=== PATIENT | male | born 2005 | race Caucasian/White ===

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

== ENCOUNTER 2023-01-11 15:36 | Emergency (ER) | payer OTHER, SELFPAY ==
[2023-01-11 15:47] VITALS: BP 135/65; PULSE 73; RESP 18; TEMP 37.1; O2SAT 100
--- NOTE | 2023-01-11 16:26 | ED.SKABFB ---
HPI - Skin/Abscess/Foreign Bdy General Chief complaint: Skin/Abscess/Foreign Body Stated complaint: rash Time Seen by Provider: 01/11/23 16:26 Source: patient Mode of arrival: ambulatory Limitations: no limitations History of Present Illness HPI narrative: 17-year-old male presented complaint of poison danelle to both arms and neck worsening over the past week. Applying itch cream and spray without relief. Patient works in [employer]. Denies lip, tongue, or throat swelling, shortness of breath or wheezing. Denies changes to soap, detergent, lotion, or any other exposures. No one else in the house or any contacts with similar symptoms. Related Data Allergies Allergy/AdvReac Type Severity Reaction Status Date / Time No Known Allergies Allergy Verified 01/11/23 15:57 Review of Systems Review of Systems: CONSTITUTIONAL: Denies body aches, fever, chills, or sweats. EYES: Denies visual changes, redness, or discharge. ENT: Denies rhinorrhea, congestion CARDIOVASCULAR: Denies chest pain, palpitations, or edema. RESPIRATORY: Denies cough or dyspnea. GASTROINTESTINAL: Denies abdominal pain, nausea, vomiting, or diarrhea. SKIN: per HPI MUSCULOSKELETAL: Denies back pain, joint pain, or myalgia. NEUROLOGIC: Denies headache, numbness, tingling, or weakness. [facility] Past Medical History Medical History No active medical problems Social History Social History Smoking status: Never smoker Alcohol intake: current Comments At time of signature, I have reviewed and agree with nursing past medical, surgical, social and family history unless otherwise noted. Please see nursing chart for further information. There is no relevant family history pertinent to the presenting complaint Exam Narrative: GENERAL: Well-appearing HEAD: Normocephalic, atraumatic. EYES: conjunctivae clear, and EOMI. ENT: Mucous membranes moist. Oropharynx without edema, erythema or lesions. NECK: Supple. No lymphadenopathy CHEST: Clear to auscultation. HEART: Regular rate and rhythm. SKIN: Warm, dry. Scattered erythematous vesicular lesions to bilateral arms, more severe around the neck, c/w poison danelle; no active drainage, induration, fluctuance to any sites. NEURO: Alert and oriented x3. Course Course Emergency Course: Patient is aware of diagnosis, understands and agrees to treatment plan. Anticipatory guidance given. Patient agrees to follow-up as directed and is aware of reasons to seek care at the emergency department. Portions of this record may have been created with voice recognition software Level of Care: Express Care Visit Vital Signs Vital signs: Vital Signs Temperature 98.7 F 01/11/23 15:47 Pulse Rate 73 01/11/23 15:47 Respiratory Rate 18 01/11/23 15:47 Blood Pressure 135/65 01/11/23 15:47 Pulse Oximetry 100 01/11/23 15:47 Oxygen Delivery Room Air 01/11/23 15:47 Temperature 98.7 F 01/11/23 15:47 Pulse Rate 73 01/11/23 15:47 Respiratory Rate 18 01/11/23 15:47 Blood Pressure 135/65 01/11/23 15:47 Pulse Oximetry 100 01/11/23 15:47 Oxygen Delivery Room Air 01/11/23 15:47 Reviewed MDM - Skin/Abscess/Foreign Bdy MDM Narrative Medical decision making narrative: Discussed physical exam findings. Advised supportive measures and signs/symptoms to go to the ER. Pt is appropriate for outpt treatment and f/u. Instructed patient to go to nearest ER immediately for any worsening symptoms including but not limited to: fever, spreading rash, pain, dizziness, chest pain, trouble breathing, or any symptoms concerning to the patient. Differential Diagnosis Differential diagnosis: Likely abscess of skin or subcutaneous tissue, urticaria, herpes zoster, cellulitis and contact dermatitis Discharge Plan Discharge Clinical Impression: Contact dermatitis Patient Disposition: [facility]
== END 2023-01-11 16:34 | disposition home or self-care (01) ==
PROVIDERS: Emergency Provider Nurse Practitioner Family
DX: L25.9 Unspecified contact dermatitis, unspecified cause (principal)
CPT/HCPCS: 99213; G0463

== ENCOUNTER 2024-03-26 15:07 | Emergency (ER) | payer SELFPAY ==
[2024-03-26 15:13] VITALS: BP 132/64; PULSE 77; RESP 16; TEMP 37.1; O2SAT 99
--- NOTE | 2024-03-26 15:28 | ED.SKABFB ---
HPI - Skin/Abscess/Foreign Bdy General Chief complaint: Skin/Abscess/Foreign Body Stated complaint: Rash Time Seen by Provider: 03/26/24 15:20 Source: patient Mode of arrival: ambulatory Limitations: no limitations History of Present Illness HPI narrative: Garret is a 18-year-old male patient presenting to the clinic today with complaints of a rash on his right arm, right side, and in his genital area. 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 He has had this for 2 weeks. Has been trying to treated at home but is getting worse. Denies any fever, chills, body aches. Denies any shortness of breath, chest pain, or throat/tongue swelling Related Data Allergies Allergy/AdvReac Type Severity Reaction Status Date / Time No Known Allergies Allergy Verified 03/26/24 15:15 Review of Systems Review of Systems: Pertinent positives per HPI. Patient denies any fever, chills,headache, visual changes, dizziness, cough, runny nose, sore throat, shortness of breath, chest pain, palpitations, nausea, vomiting, diarrhea, constipation, abdominal pain, or any urinary issues. [facility] Past Medical History Medical History No active medical problems Social History Social History Smoking status: Never smoker Alcohol intake: current Comments At the time of my signature, I reviewed and agree with the nursing past medical, surgical, social, and family history. There is no relevant family history pertinent to the patient complaint. Exam Narrative: General: Well-developed, well nourished, in no apparent distress Head: Normocephalic, atraumatic. Cardio: Regular rate and rhythm, s1 and s2 normal, no murmur appreciated. Resp: Clear to auscultation bilaterally, no rhonchi, rales, wheezing or rubs. Integumentary: [place], warm, and dry, intact without lesion, red, raised, blistery rash to the right arm, right side abdomen, and to the groin Course Course Emergency Course: Portions of this record may have been created with voice recognition software. Level of Care: Express Care Visit Vital Signs Vital signs: Vital Signs Temperature 37.1 C 03/26/24 15:13 Pulse Rate 77 03/26/24 15:13 Respiratory Rate 16 03/26/24 15:13 Blood Pressure 132/64 03/26/24 15:13 Pulse Oximetry 99 03/26/24 15:13 Oxygen Delivery Room Air 03/26/24 15:13 Temperature 37.1 C 03/26/24 15:13 Pulse Rate 77 03/26/24 15:13 Respiratory Rate 16 03/26/24 15:13 Blood Pressure 132/64 03/26/24 15:13 Pulse Oximetry 99 03/26/24 15:13 Oxygen Delivery Room Air 03/26/24 15:13 Vital signs reviewed MDM - Skin/Abscess/Foreign Bdy MDM Narrative Medical decision making narrative: At the time of visit patient is resting comfortably on the exam table. Patient appears to be nontoxic. Medications given: Dexamethasone 10 mg IM Plan: I suspect patient has contact dermatitis due to plant. Prescription for prednisone and triamcinolone cream was sent to the pharmacy. Supportive measures were discussed with the patient and they voiced understanding discharge instructions and agrees to treatment plan. Return precautions reviewed Differential Diagnosis Differential diagnosis: Likely abscess of skin or subcutaneous tissue, viral exanthem, herpes zoster, allergic reaction to drug, cellulitis, eczema, insect bites, impetigo and contact dermatitis Discharge Plan Discharge Clinical Impression: Allergic contact dermatitis due to plant Patient Disposition: Home, Self-Care Condition: Stable Instructions: Antibiotic Form, Poison Alissa (ED) Additional Instructions: Dexamethasone 10 mg IM given in the clinic today Apply triamcinolone cream as directed Take prednisone as directed-start tomorrow 03/27/2024 Avoid hot showers May apply calamine lotion to rash Avoid scratching an
[2024-03-26] MEDS: dexAMETHasone SOD PHOS INJ 10 MG/ML 1 ML VIAL IM (15:34)
== END 2024-03-26 15:50 | disposition home or self-care (01) ==
PROVIDERS: Emergency Provider Nurse Practitioner Family
DX: L23.7 Allergic contact dermatitis due to plants, except food (principal)
CPT/HCPCS: 96372; 99213; G0463; J1100

== ENCOUNTER 2025-02-09 14:04 | Emergency (ER) | payer SELFPAY ==
--- NOTE | 2025-02-09 14:09 | ED_ITS ---
HPI - Skin/Abscess/Foreign Bdy General Chief complaint: Skin/Abscess/Foreign Body Stated complaint: poison alissa patient presents to Express Care with complaints of itchy rash to both arms, left leg common abdomen that started over the last couple days. 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 Denies tongue swelling, lip swelling, rash on face, rash on genitals. Related Data Allergies Allergy/AdvReac Type Severity Reaction Status Date / Time No Known Allergies Allergy Verified 02/09/25 14:12 Review of Systems Constitutional: Constitutional: Reports as per HPI, Denies chills, Denies fatigue, Denies fever(s) and Denies weakness Eyes: Eyes: Reports no additional eye complaints ENT: Reports as per HPI Cardiovascular: Cardiovascular: Reports no additional cardiovascular complaints Respiratory: Respiratory: Reports no additional respiratory complaints Gastrointestinal: Gastrointestinal: Reports no additional gastrointestinal complaints Genitourinary: Genitourinary: Reports no additional male genitourinary complaints Musculoskeletal: Musculoskeletal: Reports no additional musculoskeletal complaints Integumentary/Breasts: Skin/Breast: Reports as per HPI, Reports pruritus, Denies erythema, Reports rash and Denies skin ulcer Neurologic: Reports system reviewed and no additional complaints, except as documented Psychiatric: Psychiatric: Reports no additional psychiatric complaints Endocrine: Endocrine: Reports no additional endocrine complaints Hematologic/Lymphatic: Hematologic/Lymphatic: Reports no additional hematologic/lymphatic complaints Allergic/Immunologic: Allergic/Immunologic: Reports as per HPI, Denies lip swelling, Denies throat swelling and Denies tongue swelling PMFSH Past Medical History Medical History No active medical problems Social History Social History Smoking status: Never smoker Alcohol intake: current Exam Const: General: healthy appearing and no acute distress Nutritional Appearance: well nourished Orientation/consciousness: patient oriented x3 Limitations: no limitations Resp: Effort & Inspection: normal respiratory effort Auscultation: clear to auscultation bilaterally Cardio: Rate: regular rate Rhythm: regular rhythm Skin: General skin exam: normal color Rashes: rash noted Wounds: no wounds Other: Linear vesicular rash noted to bilateral arms, left leg, and abdomen. No active drainage or crusting. Neuro: General: patient oriented x3 Speech: normal speech Gait exam (Neuro): Normal gait present Extrem: General: no clubbing, cyanosis or edema and no pedal edema Psych: Mental Status: mental status grossly normal Affect: normal affect Attitude: cooperative Course Course Level of Care: Express Care Visit MDM - Skin/Abscess/Foreign Bdy MDM Narrative Medical decision making narrative: Discharge instructions reviewed with patient, as well as provided in writing per nursing staff. The instructions also include specific and strict return/GO TO THE ER as well as f/u information. All questions have been answered, and the patient deny any further questions with discharge and discharge plan. Differential Diagnosis Differential diagnosis: Likely abscess of skin or subcutaneous tissue, viral exanthem, dermatophytosis, allergic reaction to drug, cellulitis and contact dermatitis Medical Records Attestation: I reviewed the patient's medical records. Discharge Plan Discharge Clinical Impression: Allergic dermatitis due to poison alissa Patient Disposition: Home Condition: Stable Instructions: Antibiotic Form, Poison Alissa (ED), Cold Compress or Soak (ED) Additional Instructions: Prevention is always better than treatment. Learn to identify poison alissa, oak, and sumac and avoid it. Wear long sleeves, long pants, shoes, and socks. If you touched the plant, try to keep your hands away from your eyes, mouth, and face. Wash the skin thoroughly with soap and cool water as soon as possible. Scrub under the fingernails with a brush to prevent spreading of the resin to other parts of the body by touching or scratching. Remember to wash any clothing with soap and hot water as the resin can persist for many months and cause further dermatitis. Use calamine lotion on the affect area. IF symptoms get worse to follow up with your primary care provider or seek ER visit if you developing difficulty breathing, weakness, dizziness. Patient Language: Amharic Prescriptions: New prednisone 10 mg tablet 10 mg PO DIRECTED Qty: 18 0RF Rx Instructions: take 3 tablets for 3 days, 2 tablets for 3 days, 1 tablet for 3 days triamcinolone acetonide 0.1 % cream 1 applic topical TID PRN (Reason: rash ) Qty: 80 0RF Follow-up/Referrals: PHYSICIAN,HEALTH PROMOTER [Primary Care Provider] - Time of Disposition: 14:21
[2025-02-09 14:12] VITALS: BP 149/86; PULSE 58; RESP 18; TEMP 36.4; O2SAT 100
== END 2025-02-09 14:25 | disposition home or self-care (01) ==
PROVIDERS: Emergency Provider Nurse Practitioner Family; Referring Provider Family Medicine
DX: L23.7 Allergic contact dermatitis due to plants, except food (principal)
CPT/HCPCS: 99213; G0463